=== PATIENT | female | born 1930 | race Two or more races ===

== ENCOUNTER 2018-07-29 06:09 | Emergency (ER) | payer MEDICARE, OTHER ==
[~2018-07-29] VITALS: Ht 157.5 cm; Wt 72.6 kg
--- NOTE | 2018-07-29 06:10 | NUR ---
PT BIB [facility] IN FULL ARREST FROM [facility]. SOB NOTED, PT 45% ON RA. NO RESPONSE NOTED FROM PT. CPR STARTED. NO PULSE NOTED. MADE AWARE.
[2018-07-29] MEDS ORDERED: SODIUM BICARBONATE SYR 50 MEQ/50 ML DISP.SYRIN IV ONE (06:12)
[2018-07-29] MEDS ORDERED: ATROPINE SULFATE 1 MG/10 ML DISP.SYRIN IV ONE (06:12)
[2018-07-29] MEDS: IV NS 0.9% 1,000 ML BAG IV ONE ×2 (06:24→07:47)
[2018-07-29] MEDS ORDERED: PIPERACILLIN /TAZOBACTAM 3.375 G VIAL IV ONE (06:54)
[2018-07-29] MEDS ORDERED: IOHEXOL-350 100 ML VIAL IV ONE (06:58)
[2018-07-29] MEDS ORDERED: DOPamine 400MG/D5W 250ML RTU 250 ML IV ONE (06:58)
[2018-07-29] MEDS ORDERED: CT SWABBABLE VALVE TRANS SET 1 EA INFUS.SET MC ONE (06:58)
[2018-07-29] MEDS ORDERED: IV NS 0.9% 0 ML IV ONE (06:59)
[2018-07-29] MEDS ORDERED: PIPERACILLIN /TAZOBACTAM 3.375 G in IV D5W 50 ML IV ONE (07:00)
[2018-07-29] MEDS ORDERED: DOPamine 400 MG in IV D5W 250 ML IV PRN (07:00)
[2018-07-29] MEDS ORDERED: VANCOMYCIN 1 GM in IV D5W 250 ML IV ONE (07:00)
[2018-07-29] MEDS ORDERED: EPINEPHRINE (1:10,000) SYRINGE 1 MG/10 ML DISP.SYRIN ONE (07:02)
[2018-07-29 07:10] LABS: BASOPHILS # (AUTO) 0.1 /CMM (0.0-0.2); BASOPHILS % (AUTO) 0.4 % (0.0-2.0); EOSINOPHILS % (AUTO) 0.7 % (0.0-6.0); HEMATOCRIT 40 % (33-45); HEMOGLOBIN 12.3 g/dL (11.5-14.8); LYMPHOCYTES # (AUTO) 6.6 /CMM (0.8-4.8); LYMPHOCYTES % (AUTO) 46.1 % (20.0-44.0); MEAN CORPUSCULAR HGB CONC 31 g/dl (31.0-36.0); MEAN CORPUSCULAR VOLUME 104 fL (82-100); MONOCYTES # (AUTO) 0.5 /CMM (0.1-1.30); MONOCYTES % (AUTO) 3.7 % (2.0-12.0); NEUTROPHILS % (AUTO) 49.1 % (43.0-81.0); RED BLOOD CELL COUNT(AUTO) 3.83 MIL/uL (4.0-5.2); WHITE BLOOD COUNT (AUTO) 14.2 K/uL (4.3-11.0)
--- NOTE | 2018-07-29 07:20 | NUR ---
CALLED [facility] AND SPOKE TO NORMA PRIMARY NURSE WITH PT'S STATUS. PROVIDED ME THE DOCTOR AND NEXT OF KIN.
--- NOTE | 2018-07-29 07:22 | NUR ---
CALLED DAUGHTER [phone]; NO VOICEMAIL SET UP TO LEAVE VOICE MESSAGE
--- NOTE | 2018-07-29 07:24 | NUR ---
CALLED FOR PRIMARY DOCTOR DR. ROCKWELL. DR. WRIGHT RUBBER PRESS OPERATOR AND AWAITING CALL BACK
--- NOTE | 2018-07-29 07:27 | NUR ---
CALLED [facility] AND SPOKE TO SKYLER [phone].
[2018-07-29 07:32] LABS: ALANINE AMINOTRANSFERASE 412 U/L (12-78); ALKALINE PHOSPHATASE 59 U/L (46-116); ASPARTATE AMINOTRANSFERASE 1311 U/L (15-37); B-TYPE NATRIURETIC PEPTIDE 3742 PG/ML (0-125); BILIRUBIN,DIRECT 0.1 mg/dL (0.0-0.2); BILIRUBIN,TOTAL 0.3 mg/dL (0.2-1.0); CALCIUM, SERUM 12.8 mg/dL (8.5-10.1); CARBON DIOXIDE 20 mmol/L (21-32); CHLORIDE 107 mmol/L (98-107); CREATININE 2.2 mg/dL (0.6-1.3); GLUCOSE 249 mg/dL (74-106); SODIUM SERUM 142 mmol/L (136-145); TOTAL PROTEIN, SERUM 4.6 g/dL (6.4-8.2); UREA NITROGEN, BLOOD 43 mg/dL (7-18)
--- NOTE | 2018-07-29 07:36 | NUR ---
CALLED [facility] AND SPOKE TO MERON; "NOT A DATA TRANSCRIBER'S CASE". REFERENCE NUMBER [id number]
[2018-07-29 07:37] LABS: ALBUMIN 1.4 g/dL (3.4-5.0); POTASSIUM 7.7 mmol/L (3.5-5.1)
[2018-07-29 07:41] LABS: PLATELET COUNT (AUTO) 26 /CMM (150-450)
--- NOTE | 2018-07-29 07:41 | NUR ---
DR. WRIGHT HORSE RACE TIMER FOR DR. ROCKWELL CALLED BACK AND STATED "I WILL NOTIFY THE PRIMARY DOCTOR"
--- NOTE | 2018-07-29 07:48 | NUR ---
[facility] CALLED BACK AND STATED "WE'RE CLOSING THE CASE AND THE BODY CAN BE RELEASED".
[2018-07-29 07:52] LABS: BAND % (MANUAL) 6 % (0.0-5.0); LYMPHOCYTES % (MANUAL) 49 % (16-48); METAMYELOCYTES % 1 % (0-0); MONOCYTES % (MANUAL) 3 % (0-11.0); NEUTROPHILS % (MANUAL) 41 (42-76)
[2018-07-29] MEDS ORDERED: NOREPINEPHRINE 8 MG in IV D5W 500 ML IV PRN (08:00)
--- NOTE | 2018-07-29 08:22 | NUR ---
POST MORTEM completed with EMT Darío and CLAY Petty. Armand Whiteside
[2018-07-29 08:23] VITALS: BP 0/0
--- NOTE | 2018-07-29 12:21 | NUR ---
CALL BACK FROM DAUGHTER,ZENAIDA, REQUESTED TO COME IN TO SPEAK WITH DR MAJOR,ETA 30 MINUTES
--- NOTE | 2018-07-29 12:24 | NUR ---
DAUGHTER'S NUMBER,ZENAIDA,[phone]
== END 2018-07-29 08:26 ==
LOC: ER 06:11
DX: I46.9 Cardiac arrest, cause unspecified (principal); I10 Essential (primary) hypertension; F20.9 Schizophrenia, unspecified; R56.9 Unspecified convulsions; F03.90 Unspecified dementia, unspecified severity, without behavioral disturbance, psychotic disturbance, mood disturbance, and anxiety; R00.0 Tachycardia, unspecified; Z95.5 Presence of coronary angioplasty implant and graft; Z86.73 Personal history of transient ischemic attack (TIA), and cerebral infarction without residual deficits
CPT/HCPCS: 36415; 71045-TC; 80048-TC; 80076-TC; 82962-TC; 83605-TC; 83880; 84484-TC; 85025-TC; 85730-TC; 87040-TC; C1751; J0171; J0461; J1265; J2543; J3490; J7050; J7060; Q9967